=== PATIENT | female | born 1975 | race Caucasian/White ===

== ENCOUNTER 2025-03-23 07:45 | Outpatient (CLI) | payer OTHER, SELFPAY | END 2025-03-23 07:46 | disposition home or self-care (01) | LOC: NFLDREF 03-25 12:35 | PROVIDERS: Visit Provider Physician Assistant | DX: N95.1 Menopausal and female climacteric states (principal); Z13.9 Encounter for screening, unspecified | CPT/HCPCS: 80061; 84270; 84402; 84403 ==